=== PATIENT | female | born 1950 | race Caucasian/White ===

== ENCOUNTER 2018-11-18 10:35 | Inpatient (IN) | payer OTHER, MEDICARE ==
[~2018-11-18] VITALS: Ht 162.6 cm; Wt 105.2 kg
[~2018-11-18 10:35] MED LIST: CARV25TA78 PO; LEVO50TA86 PO; LOSA100T75 PO; OMEP-126 PO; POTA20TA94 PO; PRE1 PO; QUET300T18 PO; QUET400T11 PO; SIMV-54 PO; ZOLP-1 PO; ZOLP-350 PO
[2018-11-18 11:42] VITALS: BP 116/71
--- NOTE | 2018-11-18 12:16 | Gen Surgery History & Physical ---
History of Present Illness Chief Complaint New colostomy, weakness History of Present Illness Pt underwent Husam's procedure 6 days ago for sigmoid colon perforation related to severe constipation. Healing well but still weak and still learning how to care for her stoma. Being admitted to [facility] for continue stoma education and PT/OT. History Problems: (1) Hyperlipidemia Status: Chronic (2) Hypertension Status: Chronic (3) Constipation due to opioid therapy Status: Chronic (4) History of hysterectomy for benign disease Status: Chronic (5) Hx laparoscopic cholecystectomy Status: Chronic Home Meds Reported Medications Zolpidem Tartrate (AMBIEN) 10 Mg Tablet, 1 TAB PO QHS, TAB 11/12/18 Zolpidem Tartrate (AMBIEN) 5 Mg Tablet, 1 TAB PO QHS, TAB 11/12/18 Quetiapine Fumarate (SEROQUEL) 400 Mg Tablet, 400 MG PO HS 11/12/18 Quetiapine Fumarate (SEROQUEL) 300 Mg Tablet, 300 MG PO HS 11/12/18 Omeprazole (OMEPRAZOLE) 20 Mg Capsule.dr, 1 CAP PO QDAY, CAP 11/12/18 Prednisone (PREDNISONE) 1 Mg Tab, 4 MG PO QDAY, TAB 11/12/18 Levothyroxine Sodium (LEVOTHYROXINE SODIUM) 50 Mcg Tablet, 50 MCG PO QDAY, TAB 11/12/18 Potassium Chloride (POTASSIUM CHLORIDE) 20 Meq Tab.er.prt, 60 MEQ PO QDAY 11/12/18 Simvastatin (SIMVASTATIN) 40 Mg Tablet, 40 MG PO HS, TAB 11/12/18 Losartan Potassium (LOSARTAN POTASSIUM) 100 Mg Tablet, 100 MG PO QDAY 11/12/18 Carvedilol (CARVEDILOL) 25 Mg Tablet, 25 MG PO BID, #10 TAB 11/12/18 Allergies: Coded Allergies: No Known Drug Allergies (Unverified , 11/12/18) Review of Systems All Systems Reviewed/Normal: Yes, Except as Noted Exam General Appearance: Alert, Awake, No Acute Distress, Afebrile Neuro: No Gross deficits Eyes: PERRLA GI: Abd Soft and Non-Tender (Midline incision is healing well without erythema or drainage. Stoma is pink and functional.) Extremities: Warm, Perfused Psych: Alert & Oriented X3, Appropriate Mood & Affect Assessment and Plan Problems: (1) Weakness Status: Acute Assessment & Plan: 11/18/18: Continue PT/OT, increase mobility. (2) Colostomy in place Status: Acute Assessment & Plan: Continue stoma education Condition Stable. Time Spent: < 30 min Venous Thromboembolism VTE Risk Physician Assess for VTE Risk: Yes Patient's VTE Risk: Low VTE Diagnostic Test 2 Days Prior to Admit: No Antithrombotics Is Pt On Any Antithrombotics?: No ETHEL PARKER MD Nov 18, 2018 12:16
[2018-11-18] MEDS: ACETAMINOPHEN 325 MG TAB PO PRN ×2 (13:35→20:31)
--- NOTE | 2018-11-18 14:33 | NUR ---
Physical Therapy Impression Pt able to transfer sit>supine in a flat bed using the rail with Mod A for B LEs via log roll technique. Pt is SBA for transfers and gait x 175' with RW. Physical Therapy Goals 1. Mod I bed mobility via log roll technique with a flat bed. 2. Mod I sit<>stand transfers. 3. Mod I gait x 150' with RW. 4. Improve TUG to <30 seconds as indicator of improved function. 5. Pick object up off the floor Mod I. Patient's Goals
--- NOTE | 2018-11-18 14:39 | NUR ---
Pt. provided with activities calendar for the month. Was asked if there were any particular activities that she wanted to do while here. She stated she wants to, "watch TV, read her books (she has 3), and sleep." Pt. refused hair/nail care for ACTIVITIES today.
--- NOTE | 2018-11-18 14:42 | PT ECF NOTE ---
Type of Note: Initial Note Primary Medical Diagnosis: sigmoid colon perforation, new colostomy Physical Therapy Evaluation Date: 11/18/18 SUBJECTIVE: Prior Hospitalization: [facility] Med/Surg, please see EMR for details Prior Level of Function: Mod I with use of RW, Pt reports minimal ambulation Prior Living Status: Single level house, Spouse Community Services: No known needs Home Accessibility: no stairs Equipment Owned: Front wheeled walker Medical Complications/Past Medical History: See EMR Psychosocial Support: Supportive and family Pain Scale (0-10): Pt reports minimal pain at eval. OBJECTIVE: Strength: Right Lower Extremity: functional strength noted Left Lower Extremity: functional strength noted Bed Mobility: Mod A for B LE during sit>supine via log roll Assistive device: Bed rail Transfers: SBA Assistive Device: Front wheeled walker Gait: SBA x 175' Assistive device: Front wheeled walker Timed Up and Go (>12 seconds indicated increased risk for falls): 32.8 seconds ASSESSMENT: Pt presents with decreased independence compared to Mod I baseline. TUG score indicated increased fall risk. Pt will benefit from skilled PT for functional mobility training in order to increase independence and safety. Problem List/Current Limitations: Pain, Decreased activity tolerance, Decreased strength, Generalized weakness Short Term Goals: 1. Mod I bed mobility via log roll technique with a flat bed. 2. Mod I sit<>stand transfers. 3. Mod I gait x 150' with RW. 4. Improve TUG to <30 seconds as indicator of improved function. 5. Pick object up off the floor Mod I. [facility] Goals: Return home Patient Goals: Return home Rehabilitation Prognosis: Fair Barriers for Discharge: decreased tolerance to activity at baseline. PLAN: The patient will benefit from skilled physical therapy services 5 times per week for 2 weeks including: Therapeutic Exercise, Therapeutic Activities, Transfer Training, Gait Training, Stair Training, Manual Therapy, ADL's, Safety Training, Neuromuscular Re-educ., Pt/Caregiver Training, Bed Mobility Thank you for this referral. If you have any questions, concerns, or comments about this report or plan, please contact me at . Duyen Miguel, PT, DPT, GCS MTDD
--- NOTE | 2018-11-18 14:58 | Medical Nutrition Therapy ---
Nutrition Anthropometrics Height (Inches): 64.00 Height (Calculated Centimeters: 162.861394 Weight (Pounds): 232 Weight (Calculated Kilograms): 105.233 BMI: 39.8 Venkata Nutrition Score: Very Poor Venkata Nutrition Risk Score: 18 Dietary Referral Nutrition Risk Factors: Unplanned Loss >10lbs, Recent Nutrition Impact Nutrition Risk Comment: New Colostomy Physical Findings Physical Appearance: Obese BMI 30-39 Skin Appearance Skin Appearance: Edema Edema Location Modifier: Both Edema Location: Leg Type of Edema: Degree of Edema: 1+ Gastrointestinal Symptoms GI Symtoms: Tube Present: Bowel Sounds: Recent Bowel Pattern: Colostomy Stool Characteristics: Brown, Soft Nutrition/Food History Usually good at home Poor Nutritional Diagnosis Nutritional Risk Acuity 2: New Colostomy Nutritional Risk Acuity 3: Colostomy Past Medical History: Hypercholesterolemia, HTN, Depression Nutritional Acuity: 2-Moderate Nutrition Diagnosis: Altered GI Function Nutrition Etiology: Physiological Causes Nutrition Problem/Etiology/Sym: New colostomy Energy Requirement: 2027 (MSJ (AF1.3)) Protein Requirement: 105 (1g/kg) Fluid Requirement: 2027 (1mL/kcal) Nutrition Intervention: Between meal supplement, Teaching Diet Comment To [facility]: OFFER ORAL NUTRITION SUPPLEMENT (MIGHTY SHAKE, BOOST, MILKSHAKE WITH BENEPROTEIN) Nutrition Monitoring & Eval Nutrition Goals: Eat 75-100% Meal Nutrition Follow-Up: Poor Intake Nutrition Monitoring: Monitor intake, Quiz pt on colostomy diet RD Patient Assessment Time: [address] Assessment Type: RD Assessment Patient Nutrition Acuity: 2-Moderate Follow Up Date: Nov 24, 2018 Nutritional Comment: 11/18/18-Spoke with pt this afternoon. Appetite continues to be poor. Pt recently advanced from clears to DANA, average intake on med/surg was 42% of meals. Encouraged pt to eat, recommended appropriate foods. Asked [facility] to offer nutritional supplement at meals. Will continue to monitor appetite, food tolerance, output, and need for additional education.ALEX FARFAN Nov 18, 2018 14:29
--- NOTE | 2018-11-18 15:36 | OT ECF NOTE ---
Type of Note: Initial Note Primary Medical Diagnosis: Generalized weakness s/p sigmoid colon perforation, new colostomy Occupational Therapy Evaluation Date: 11/18/18 SUBJECTIVE: Prior Hospitalization: COUNTS INCLUDE 234 BEDS AT [facility] 11/12/18-11/18/18 Prior Level of Function: Independent with ADLs. Assist from family for IADLs. Ambulating with RW. 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) Prior Living Status: Apartment Spouse Living with family Assist by family Community Services: No known needs Home Accessibility: All needs on one level Tub/shower combination Equipment Owned: Front wheeled walker Rollator Tub/shower chair Medical Complications/Past Medical History: Please refer to EMR Psychosocial Support: Supportive spouse and family in [place] Pain Scale (0-10): None reported at time of evaluation OBJECTIVE: Strength: MMT: Right Left Shoulder Flexion WFL WFL Elbow Flexion WFL WFL Wrist Extension WFL WFL Machine Clipper WFL WFL (5= normal, 4= good, 3= fair, 2= poor, 1= trace) ROM: Both upper extremities,Moderately limited Sensation: No paraesthesia reported Functional Transfer: Assistive Device: Front wheeled walker, Gait belt Transfer Ability: SBA ADL: Upper body dressing: Assistive device: Upper body dressing ability: N/T Lower body dressing: Assistive device: None Lower body dressing ability: Minimum assistance Toileting: Assistive device: Pt with new colostomy. Primary concern for discharge is improving education and independence for colostomy management. Toileting ability: N/T Grooming/hygiene: Assistive device: Grooming ability: N/T Bathing: Assistive device: Bathing ability: N/T Standardized Assessment: Laura Index of Activities of Daily Livin/20 upon initial evaluation (11/18/18). ASSESSMENT: Armida presents to [facility] with generalized weakness and decreased independence for ADLs/IADLs s/p recent hospital admission. She will benefit from skilled OT services to improve activity tolerance and optimize independence for ADLs prior to discharge home. Problem List/Current Limitations: Pain Decreased activity tolerance Decreased strength Generalized weakness Short Term Goals: 1) Pt will be Independent UB/LB dressing. 2) Pt will be Independent toilet task. 3) Pt will be Modified Independent shower task. 4) Pt will be Independent grooming standing sinkfront x5 minutes. 5) Pt will be Independent with UB HEP. 6) Pt Laura Index of ADLs score will improve by two points. Shelter Goals: Return home with services Patient Goals: Increase independence and education for colostomy management Rehabilitation Prognosis: Good Barriers to Discharge: Decreased activity tolerance at baseline PLAN: The patient will benefit from skilled occupational therapy services 5 times per week for 2 weeks including: Ther ex ADL training Safety training Ther act IADL training Transfer training Adaptive equip training Bed mobility Energy conservation Thank you for this referral. If you have any questions, concerns, or comments about this report or plan, please contact me at . Dominique Yuan MS, OTR/L Occupational Therapist [place]
[2018-11-18 16:15] VITALS: BP 132/80
[2018-11-18 19:15] VITALS: BP 147/76
[2018-11-18] MEDS: ENOXAPARIN 40 MG/0.4ML SYR SC SCH (20:30)
[2018-11-18] MEDS: QUEtiapine FUM 100 MG TAB PO SCH (20:31)
[2018-11-18] MEDS: CARVEDILOL 25 MG TABLET PO SCH (20:31)
[2018-11-18] MEDS: DOCUSATE SODIUM 100 MG CAP PO SCH (20:31)
[2018-11-18] MEDS: HYDROmorphone HCL 2 MG TAB PO PRN (21:24)
[2018-11-19] MEDS: HYDROmorphone HCL 2 MG TAB PO PRN ×2 (03:02→19:21)
[2018-11-19] MEDS: LEVOTHYROXINE SOD 0.05 MG TAB PO SCH (05:42)
[2018-11-19 07:11] VITALS: BP 136/70
[2018-11-19] MEDS: CARVEDILOL 25 MG TABLET PO SCH ×2 (08:55→20:47)
[2018-11-19] MEDS: POLYETHYLENE GLYCOL 17 GM PKT PO SCH (08:55)
[2018-11-19] MEDS: LOSARTAN POTASSIUM 50 MG TAB PO SCH (08:56)
[2018-11-19] MEDS: DOCUSATE SODIUM 100 MG CAP PO SCH ×2 (08:56→20:47)
[2018-11-19] MEDS: CETIRIZINE HCL 10 MG TAB PO SCH (08:56)
[2018-11-19] MEDS: PANTOPRAZOLE SOD 40 MG TABEC PO SCH (08:56)
--- NOTE | 2018-11-19 10:20 | NUR ---
Occupational Therapy Impression Pt alert, agreeable to OT tx. Reports feeling more fatigued this date. Dressed upon OT arrival. SBA ambulation [id number] with RW. Min A to manage O2 tubing. Mod (I) bathtub transfer with shower chair. Pt reporting fatigue, seated up in chair declining further needs at this time. Occupational Therapy Goals 1) Pt will be Independent UB/LB dressing. 2) Pt will be Independent toilet task. 3) Pt will be Modified Independent shower task. 4) Pt will be Independent grooming standing sinkfront x5 minutes. 5) Pt will be Independent with UB HEP. 6) Pt Laura Index of ADLs score will improve by two points. Patient's Goal
--- NOTE | 2018-11-19 15:37 | NUR ---
Physical Therapy Impression Pt requires encouragement to participate today. Pt reports feeling tired. Pt demonstrates SBA for transfers and ambulation with RW to shower room. Physical Therapy Goals 1. Mod I bed mobility via log roll technique with a flat bed. 2. Mod I sit<>stand transfers. 3. Mod I gait x 150' with RW. 4. Improve TUG to <30 seconds as indicator of improved function. 5. Pick object up off the floor Mod I. Patient's Goals
[2018-11-19 16:20] VITALS: BP 132/76
[2018-11-19] MEDS: ACETAMINOPHEN 325 MG TAB PO PRN (20:47)
[2018-11-19] MEDS: ENOXAPARIN 40 MG/0.4ML SYR SC SCH (20:47)
[2018-11-19] MEDS: QUEtiapine FUM 100 MG TAB PO SCH (20:47)
[2018-11-20] MEDS: HYDROmorphone HCL 2 MG TAB PO PRN ×2 (02:05→20:33)
[2018-11-20] MEDS: LEVOTHYROXINE SOD 0.05 MG TAB PO SCH (05:11)
[2018-11-20 07:00] VITALS: BP 100/64
[2018-11-20 08:09] VITALS: BP 126/68
[2018-11-20] MEDS: CARVEDILOL 25 MG TABLET PO SCH ×2 (09:00→20:33)
[2018-11-20 09:35] VITALS: BP 110/43
[2018-11-20] MEDS: LOSARTAN POTASSIUM 50 MG TAB PO SCH (09:37)
[2018-11-20] MEDS: PANTOPRAZOLE SOD 40 MG TABEC PO SCH (09:37)
[2018-11-20] MEDS: CETIRIZINE HCL 10 MG TAB PO SCH (09:37)
[2018-11-20] MEDS: POLYETHYLENE GLYCOL 17 GM PKT PO SCH (09:38)
[2018-11-20] MEDS: DOCUSATE SODIUM 100 MG CAP PO SCH ×2 (09:38→20:33)
--- NOTE | 2018-11-20 10:11 | NUR ---
Occupational Therapy Impression Reviewed UB ther ex HEP. SBA ambulation x90ft with RW. Occasional Min A to manage O2 tubing. Independent sit to supine with log roll. Independent toileting. Independent oral care standing sinkfront. Discussed AE needs and home evaluation. Pt declined home evaluation at this time but will follow-up Friday to determine if she would like one. Otherwise, recommending HH services. Nearing OT goals, discussed d/c from OT early next week. Pt verbalized understanding. Occupational Therapy Goals 1) Pt will be Independent UB/LB dressing. 2) Pt will be Independent toilet task. 3) Pt will be Modified Independent shower task. 4) Pt will be Independent grooming standing sinkfront x5 minutes. 5) Pt will be Independent with UB HEP. 6) Pt Laura Index of ADLs score will improve by two points. Patient's Goal
--- NOTE | 2018-11-20 11:01 | NUR ---
Physical Therapy Impression Patient presents in bed and reports that she is fatigued today as she sat up in her chair all day yesterday. She is agreeable to therapy but does not want to ambulate as she already did this with OT. Standing B LE exercises including mini squats x 5 standing marching x 5 hip flex and abd x 10 on right LE and 5 on left B LAQ x 10 Patient was SBA for bed mobility and SBA with transfer from bed to chair. went to [facility] today and bought a rail to put on the bed to help with bed mobility when patient returns home. STS x 5 B HR in standing x 10 Physical Therapy Goals 1. Mod I bed mobility via log roll technique with a flat bed. 2. Mod I sit<>stand transfers. 3. Mod I gait x 150' with RW. 4. Improve TUG to <30 seconds as indicator of improved function. 5. Pick object up off the floor Mod I. Patient's Goals
--- NOTE | 2018-11-20 13:37 | NUR ---
Non-billable visit to assist with new appliance application and problem solve with nursing regarding skin care and ways in which to allow for a better seal with wafer. Pt tolerated use of 6x6 wafer with 100mm flange and cut to fit opening to better accommodate stoma size with current edema. This option does not have an accordion flange, however, thus clasping the pouch to the wafer is a bit more difficult. Will attempt to progress back to the 70mm flange with accordion attachment for pouch when edema is reduced.
[2018-11-20] MEDS: FLUCONAZOLE 100 MG TAB PO SCH (16:48)
[2018-11-20 16:55] VITALS: BP 147/85
[2018-11-20 20:29] VITALS: BP 138/71
[2018-11-20] MEDS: ENOXAPARIN 40 MG/0.4ML SYR SC SCH (20:32)
[2018-11-20] MEDS: QUEtiapine FUM 100 MG TAB PO SCH (20:33)
[2018-11-20] MEDS ORDERED: NYSTATIN 5 ML UDCUP PO SCH (21:00)
[2018-11-21] MEDS: HYDROmorphone HCL 2 MG TAB PO PRN ×2 (03:51→22:54)
[2018-11-21] MEDS: LEVOTHYROXINE SOD 0.05 MG TAB PO SCH (06:11)
[2018-11-21 07:45] VITALS: BP 100/62
[2018-11-21] MEDS: ACETAMINOPHEN 325 MG TAB PO PRN (08:52)
[2018-11-21] MEDS: POLYETHYLENE GLYCOL 17 GM PKT PO SCH (08:53)
[2018-11-21] MEDS: CETIRIZINE HCL 10 MG TAB PO SCH (08:53)
[2018-11-21] MEDS: FLUCONAZOLE 100 MG TAB PO SCH (08:54)
[2018-11-21] MEDS: PANTOPRAZOLE SOD 40 MG TABEC PO SCH (08:55)
[2018-11-21] MEDS: DOCUSATE SODIUM 100 MG CAP PO SCH ×2 (08:55→21:45)
[2018-11-21] MEDS: LOSARTAN POTASSIUM 50 MG TAB PO SCH (08:55)
[2018-11-21] MEDS: CARVEDILOL 25 MG TABLET PO SCH ×3 (08:55→21:44)
[2018-11-21 17:05] VITALS: BP 128/57
[2018-11-21] MEDS: QUEtiapine FUM 100 MG TAB PO SCH (21:45)
[2018-11-21] MEDS: ENOXAPARIN 40 MG/0.4ML SYR SC SCH (21:46)
[2018-11-22] MEDS: LEVOTHYROXINE SOD 0.05 MG TAB PO SCH (06:27)
[2018-11-22 07:42] VITALS: BP 141/54
[2018-11-22] MEDS: POLYETHYLENE GLYCOL 17 GM PKT PO SCH (08:44)
[2018-11-22] MEDS: LOSARTAN POTASSIUM 50 MG TAB PO SCH (08:44)
[2018-11-22] MEDS: FLUCONAZOLE 100 MG TAB PO SCH (08:44)
[2018-11-22] MEDS: PANTOPRAZOLE SOD 40 MG TABEC PO SCH (08:44)
[2018-11-22] MEDS: CETIRIZINE HCL 10 MG TAB PO SCH (08:45)
[2018-11-22] MEDS: DOCUSATE SODIUM 100 MG CAP PO SCH ×2 (08:45→21:33)
[2018-11-22] MEDS: CARVEDILOL 25 MG TABLET PO SCH ×2 (08:45→21:33)
[2018-11-22] MEDS: ACETAMINOPHEN 325 MG TAB PO PRN ×2 (08:46→21:33)
[2018-11-22 16:25] VITALS: BP 127/51
[2018-11-22 21:30] VITALS: BP 145/62
[2018-11-22] MEDS: QUEtiapine FUM 100 MG TAB PO SCH (21:33)
[2018-11-22] MEDS: ENOXAPARIN 40 MG/0.4ML SYR SC SCH (21:33)
[2018-11-23] MEDS: HYDROmorphone HCL 2 MG TAB PO PRN ×2 (00:09→21:05)
[2018-11-23] MEDS: LEVOTHYROXINE SOD 0.05 MG TAB PO SCH (06:32)
[2018-11-23 07:20] VITALS: BP 141/61
[2018-11-23] MEDS: ACETAMINOPHEN 325 MG TAB PO PRN ×2 (08:48→21:04)
[2018-11-23] MEDS: POLYETHYLENE GLYCOL 17 GM PKT PO SCH (08:48)
[2018-11-23] MEDS: PANTOPRAZOLE SOD 40 MG TABEC PO SCH (08:48)
[2018-11-23] MEDS: DOCUSATE SODIUM 100 MG CAP PO SCH ×2 (08:49→21:05)
[2018-11-23] MEDS: CETIRIZINE HCL 10 MG TAB PO SCH (08:49)
[2018-11-23] MEDS: CARVEDILOL 25 MG TABLET PO SCH ×2 (08:49→21:05)
[2018-11-23] MEDS: LOSARTAN POTASSIUM 50 MG TAB PO SCH (08:49)
--- NOTE | 2018-11-23 11:37 | NUR ---
Physical Therapy Impression Pt requires encouragement to participate today, reports that she is "having a bad day". Fantasma for transfers and short distance ambulation with RW -- pt demonstrates good safety and is safe to be I) in her room with RW at this time. PT instruction for standing balance tasks in RW while standing at edge of chair in order to improve balance for functional tasks. PT instruction for narrow KELLEN with EO and EC, as well as tandem stance. Pt with increased difficulty with eyes closed, and reports R) knee pain with tandem stance. Pt educated on the importance of balance training to decrease risk of falls. Pt will benefit from [facility] at D/C. Physical Therapy Goals 1. Mod I bed mobility via log roll technique with a flat bed. 2. Mod I sit<>stand transfers. 3. Mod I gait x 150' with RW. 4. Improve TUG to <30 seconds as indicator of improved function. 5. Pick object up off the floor Mod I. Patient's Goals
--- NOTE | 2018-11-23 13:00 | NUR ---
5-day MDS completed with pt. C: 15, D: 06, E: no concerns, Q: plan to DC to community, referral already made for [facility] at [place]. Will continue to follow for DC needs.
--- NOTE | 2018-11-23 14:02 | NUR ---
Occupational Therapy Impression Pt alert, supine in bed. Adamantly refusing to get OOB and engage in OT tx. Reporting she will be agreeable to work with OT in the AM and get dressed. Reports no concerns for OT with discharge home, primary concern in ostomy supplies and management. Discussed AE needs (walk tray/bed rail). Pt declined further needs at this time. Occupational Therapy Goals 1) Pt will be Independent UB/LB dressing. 2) Pt will be Independent toilet task. 3) Pt will be Modified Independent shower task. 4) Pt will be Independent grooming standing sinkfront x5 minutes. 5) Pt will be Independent with UB HEP. 6) Pt Laura Index of ADLs score will improve by two points. Patient's Goal
--- NOTE | 2018-11-23 15:19 | Medical Nutrition Therapy ---
Nutrition Anthropometrics Height (Inches): 64.00 Height (Calculated Centimeters: 162.293816 Weight (Pounds): 232 Weight (Calculated Kilograms): 105.233 BMI: 39.8 Venkata Nutrition Score: Probably Inadequate Venkata Nutrition Risk Score: 18 Dietary Referral Nutrition Risk Factors: Unplanned Loss >10lbs, Recent Nutrition Impact Nutrition Risk Comment: New Colostomy Physical Findings Physical Appearance: Obese BMI 30-39 Skin Appearance Skin Appearance: Edema Edema Location Modifier: Both Edema Location: Leg Type of Edema: Degree of Edema: 1+ Gastrointestinal Symptoms GI Symtoms: Change in Bowel Pattern Tube Present: Bowel Sounds: Recent Bowel Pattern: Colostomy Stool Characteristics: Brown, Soft Nutritional Diagnosis Nutritional Risk Acuity 2: New Colostomy Nutritional Risk Acuity 3: Colostomy Past Medical History: Hypercholesterolemia, HTN, Depression Nutritional Acuity: 2-Moderate Nutrition Diagnosis: Altered GI Function Nutrition Etiology: Physiological Causes Nutrition Problem/Etiology/Sym: New colostomy Energy Requirement: 2027 (MSJ (AF1.3)) Protein Requirement: 105 (1g/kg) Fluid Requirement: 2027 (1mL/kcal) Nutrition Intervention: Between meal supplement, Teaching Diet Comment To [facility]: OFFER ORAL NUTRITION SUPPLEMENT (MIGHTY SHAKE, BOOST, MILKSHAKE WITH BENEPROTEIN) Nutritional Education Nutrition Education Topic: Other Learning Barriers: Emotional Learning Readiness: Interested Teaching Methods: Discussion Response to Teaching: Verbalize understanding Nutrition Counseling: Reinforced diet education for colostomy. Nutrition Monitoring & Eval Nutrition Goals: Eat 75-100% Meal Nutrition Follow-Up: Good Intake, Fair Intake RD Patient Assessment Time: [address] Assessment Type: RD Assessment Patient Nutrition Acuity: 2-Moderate Follow Up Date: Nov 24, 2018 Nutritional Comment: 11/18/18-Spoke with pt this afternoon. Appetite continues to be poor. Pt recently advanced from clears to DANA, average intake on med/surg was 42% of meals. Encouraged pt to eat, recommended appropriate foods. Asked [facility] to offer nutritional supplement at meals. Will continue to monitor appetite, food tolerance, output, and need for additional education.MANNIE 11/23/18-Spoke with pt this afternoon. Reviewed diet education for colostomy. Pt is eating 60% average x last 8 meals. No new weight since last assess. Meal intake improving slightly, pt is still reporting decreased appetite. Reported stoma output appears to be normal, one large stool the rest small. Encouraged pt to drink ~2000mL of water everyday to prevent constipation. Requested Activia yogurt for pt. Will continue to monitor intake, appetite, need for additional diet education.ALEX FARFAN Nov 23, 2018 15:19
[2018-11-23 16:26] VITALS: BP 115/71
[2018-11-23] MEDS: ENOXAPARIN 40 MG/0.4ML SYR SC SCH (21:04)
[2018-11-23] MEDS: QUEtiapine FUM 100 MG TAB PO SCH (21:05)
[2018-11-24] MEDS: LEVOTHYROXINE SOD 0.05 MG TAB PO SCH (06:24)
[2018-11-24 07:05] VITALS: BP 143/63
--- NOTE | 2018-11-24 09:02 | NUR ---
Physical Therapy Impression Pt has met PT goals and is safe to d.c home from a mobility stand point when medically appropriate. Pt continues to reports R knee pain, but this is present at baseline, and pt utilizes a RW at [facility]. Pt is [facility] for all mobility with a Rw and has improved her TUG test to 20.7 sec, indicating an improvement in function. Rec [facility] at d/c. Physical Therapy Goals 1. Mod I bed mobility via log roll technique with a flat bed. 2. Mod I sit<>stand transfers. 3. Mod I gait x 150' with RW. 4. Improve TUG to <30 seconds as indicator of improved function. 5. Pick object up off the floor Mod I. Patient's Goals
--- NOTE | 2018-11-24 09:09 | NUR ---
Occupational Therapy Impression Pt alert and agreeable to OT tx. Reporting no further needs to address with OT, concerned with obtaining supplies for ostomy. Mod (I) ambulation in room with RW. Independent UB/LB dressing donning and doffing. SpO2 >90% on room air throughout tx. Pt has met all skilled OT goals. Desires to discharge home tomorrow with HH services if ostomy supplies are arranged. Occupational Therapy Goals 1) Pt will be Independent UB/LB dressing. 2) Pt will be Independent toilet task. 3) Pt will be Modified Independent shower task. 4) Pt will be Independent grooming standing sinkfront x5 minutes. 5) Pt will be Independent with UB HEP. 6) Pt Laura Index of ADLs score will improve by two points. Patient's Goal
--- NOTE | 2018-11-24 09:09 | NUR ---
OCCUPATIONAL THERAPY Dressing Assistance: Independent Dressing Aid Required: None Bathing Assistance: Modified Independent Bathing Equipment: Shower Chair Home Assessment: Not Completed Feeding Assistance: Independent Feeding Specialized Equipment: None Toilet Use: Independent Verbalizes Needs: Yes Understands Precautions: Yes Cooperative: Yes Family Teaching: No Occupational Therapy Comment:
[2018-11-24] MEDS: POLYETHYLENE GLYCOL 17 GM PKT PO SCH (09:31)
[2018-11-24] MEDS: PANTOPRAZOLE SOD 40 MG TABEC PO SCH (09:31)
[2018-11-24] MEDS: CARVEDILOL 25 MG TABLET PO SCH ×2 (09:31→20:27)
[2018-11-24] MEDS: LOSARTAN POTASSIUM 50 MG TAB PO SCH (09:31)
[2018-11-24] MEDS: DOCUSATE SODIUM 100 MG CAP PO SCH ×2 (09:31→20:27)
[2018-11-24] MEDS: CETIRIZINE HCL 10 MG TAB PO SCH (09:31)
--- NOTE | 2018-11-24 13:30 | NUR ---
Non-billable visit for pt/CG discharge teaching. Return to 70mm flange was successful as edema is now reduced and stoma size measures 45mm. Reviewed resources available with pt starter kit and community resources available for supplies. Pt's spouse completed application of new stoma wafer with good seal obtained and pouch applied with good contact. Pt did participate in body habitus management to allow for a more exposed surface along inferior edge of stoma to gain appropriate seal. Pt will have [facility] services to assist with further ostomy teaching as well as PT/OT to continue with strengthening and functional mobility to allow for return to indep with ADL's including new activities required with stoma management once home. Pt anticipates d/c home tomorrow. Communication completed with Dr. King's nurse for f/u appointment schedule and to indicate which products have been most successful overall for a future home supply order.
--- NOTE | 2018-11-24 14:21 | OT ECF NOTE ---
Type of Note: Discharge Note Primary Medical Diagnosis: Generalized weakness s/p sigmoid colon perforation, new colostomy Occupational Therapy Evaluation Date: 11/18/18 SUBJECTIVE: Prior Hospitalization: [facility] 11/12/18-11/18/18 Prior Level of Function: Independent with ADLs. Assist from family for IADLs. Ambulating with RW. 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 Pt with no further questions, verbalized understanding. 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 Grooming/hygiene: Assistive device: None Grooming ability: Independent Bathing: Assistive device: Modified Independent Bathing ability: Shower chair Standardized Assessment: Laura Index of Activities of Daily Livin20 upon initial evaluation (11/18/18). 18/20 upon discharge (11/24/18). ASSESSMENT: Armida presented to [facility] with generalized weakness and decreased independence for ADLs/IADLs s/p recent hospital admission. She has met all skilled OT goals and reports no further questions/concerns to address with OT at this time. Short Term Goals: 1) Pt will be Independent UB/LB dressing. GOAL MET 2) Pt will be Independent toilet task. GOAL MET 3) Pt will be Modified Independent shower task. GOAL MET 4) Pt will be Independent grooming standing sinkfront x5 minutes. 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 Thank you for this referral. If you have any questions, concerns, or comments about this report or plan, please contact me at . Dominique Yuan MS, OTR/L Occupational Therapist [place]
--- NOTE | 2018-11-24 14:24 | NUR ---
[facility] notified of discharge plan for Friday. ZEFERINO Stallings will get message to Dr. Fernandes who is covering for Dr. King. Order for liseth to be discontinued tomorrow.
--- NOTE | 2018-11-24 15:02 | NUR ---
PHYSICAL THERAPY INFORMATION TRANSFER SHEET BED MOBILITY: Hugh TRANSFERS: Modified I/ AE GAIT: 60 ' with O2 RW and Modified I/ AE Weightbearing Status: STAIRS: with . EXERCISES: Verbalizes Needs: Yes Understands Directions Yes Cooperative: Yes Family Teaching: Yes Physical Therapy Comment:
--- NOTE | 2018-11-24 15:07 | PT ECF NOTE ---
ype of Note: Discharge Summary Primary Medical Diagnosis: sigmoid colon perforation, new colostomy Physical Therapy Discharge Date: 11/24/18 SUBJECTIVE: Prior Hospitalization: [facility] Med/Surg, please see EMR for details Prior Level of Function: Mod I with use of RW, Pt reports minimal ambulation Prior Living Status: Single level house, Spouse Community Services: No known needs Home Accessibility: no stairs Equipment Owned: Front wheeled walker Medical Complications/Past Medical History: See EMR Psychosocial Support: Supportive and family Pain Scale (0-10): 3-4/10 OBJECTIVE: Strength: Right Lower Extremity: functional strength noted R) knee extension and flexion 3+/5, limited by pain Left Lower Extremity: functional strength noted Bed Mobility: Fantasma Transfers: Fantasma with RW Gait: Fantasma x200' with RW Timed Up and Go (>12 seconds indicated increased risk for falls): 20.74 ASSESSMENT: Pt has met PT goals and is safe to d.c home from a mobility stand point when medically appropriate. Pt continues to reports R knee pain, but this is present at baseline, and pt utilizes a RW at [facility]. Pt is Fantasma for all mobility with a Rw and has improved her TUG test to 20.7 sec, indicating an improvement in function. Rec HHC at d/c. Problem List/Current Limitations: Pain, Decreased activity tolerance, Decreased strength, Generalized weakness Short Term Goals: (goals met) 1. Mod I bed mobility via log roll technique with a flat bed. 2. Mod I sit<>stand transfers. 3. Mod I gait x 150' with RW. 4. Improve TUG to <30 seconds as indicator of improved function. 5. Pick object up off the floor Mod I. [facility] Goals: Return home -met Patient Goals: Return home - met PLAN: The patient will discharge home with assistance from her spouse and [facility] services. Thank you for this referral. If you have any questions, concerns, or comments about this report or plan, please contact me at . Rosa Null, PT, DPT MTDD
[2018-11-24 15:40] VITALS: BP 140/78
[2018-11-24] MEDS: ENOXAPARIN 40 MG/0.4ML SYR SC SCH (20:27)
[2018-11-24] MEDS: QUEtiapine FUM 100 MG TAB PO SCH (20:28)
[2018-11-24] MEDS: HYDROmorphone HCL 2 MG TAB PO PRN (20:59)
[2018-11-25] MEDS: ACETAMINOPHEN 325 MG TAB PO PRN ×2 (04:19→11:21)
[2018-11-25] MEDS: LEVOTHYROXINE SOD 0.05 MG TAB PO SCH (06:33)
[2018-11-25 07:03] VITALS: BP 142/55
[2018-11-25] MEDS: CARVEDILOL 25 MG TABLET PO SCH (09:00)
[2018-11-25] MEDS: POLYETHYLENE GLYCOL 17 GM PKT PO SCH (09:31)
[2018-11-25] MEDS: PANTOPRAZOLE SOD 40 MG TABEC PO SCH (09:32)
[2018-11-25] MEDS: CETIRIZINE HCL 10 MG TAB PO SCH (09:32)
[2018-11-25] MEDS: LOSARTAN POTASSIUM 50 MG TAB PO SCH (09:32)
[2018-11-25] MEDS: DOCUSATE SODIUM 100 MG CAP PO SCH (09:32)
--- NOTE | 2018-11-25 09:55 | Hospitalist Depart ---
Discharge Summary Reason for Hosp/Final Diag: (1) Weakness Status: Acute Hospital Course & Plan: 11/18/18: Continue PT/OT, increase mobility. 11/25/18: doing well. darci po. ready to go home. stoma pink. inc c/d/i. d/c home with . f/u dr. martinez 1 wk. leave liseth in 1 more week. 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 Follow Up For: ADL Assistance Discharge Instructions Home Meds Reported Medications Zolpidem Tartrate (AMBIEN) 10 Mg Tablet, 1 TAB PO QHS, TAB 11/12/18 Zolpidem Tartrate (AMBIEN) 5 Mg Tablet, 1 TAB PO QHS, TAB 11/12/18 Quetiapine Fumarate (SEROQUEL) 400 Mg Tablet, 400 MG PO HS 11/12/18 Quetiapine Fumarate (SEROQUEL) 300 Mg Tablet, 300 MG PO HS 11/12/18 Omeprazole (OMEPRAZOLE) 20 Mg Capsule.dr, 1 CAP PO QDAY, CAP 11/12/18 Prednisone (PREDNISONE) 1 Mg Tab, 4 MG PO QDAY, TAB 11/12/18 Levothyroxine Sodium (LEVOTHYROXINE SODIUM) 50 Mcg Tablet, 50 MCG PO QDAY, TAB 11/12/18 Potassium Chloride (POTASSIUM CHLORIDE) 20 Meq Tab.er.prt, 60 MEQ PO QDAY 11/12/18 Simvastatin (SIMVASTATIN) 40 Mg Tablet, 40 MG PO HS, TAB 11/12/18 Losartan Potassium (LOSARTAN POTASSIUM) 100 Mg Tablet, 100 MG PO QDAY 11/12/18 Carvedilol (CARVEDILOL) 25 Mg Tablet, 25 MG PO BID, #10 TAB 11/12/18 Diet: Regular Activity: No Heavy Lifting Special Instructions: ok to shower. f/u dr. martinez 1 wk. Venous Thromboembolism Antithrombotics Is Pt On Any Antithrombotics?: No SARA VELOZ Nov 25, 2018 09:55
--- NOTE | 2018-11-25 11:00 | NUR ---
Liseth Fernandes here this AM, recommended to leave liseth in until pt follows up with Dr. King in one week. Home health notified.
[2018-11-26] MEDS ORDERED: SULF-198 PO (14:52)
== END 2018-11-25 11:35 | disposition home health service (06) | DRG 395 ==
LOC: ECF 10:35
PROVIDERS: ADMIT Surgery; ATTEND Surgery
DX: Z43.3 Encounter for attention to colostomy (principal); R53.1 Weakness; E78.5 Hyperlipidemia, unspecified; I10 Essential (primary) hypertension; K59.03 Drug induced constipation; T40.2X5A Adverse effect of other opioids, initial encounter; Z90.710 Acquired absence of both cervix and uterus; Z90.49 Acquired absence of other specified parts of digestive tract
CPT/HCPCS: 97162; 97165; J1650

== ENCOUNTER → 2018-12-10 | Outpatient (REF) | payer OTHER, MEDICARE ==
[~2018-12-10] MED LIST changes: +FLUC200T56 PO; +SULF-198 PO
[2018-12-10 15:24] LABS: PLATELET COUNT, AUTOMATED 196 K/uL (150-450)
== END ==
PROVIDERS: ATTEND Surgery
DX: E78.5 Hyperlipidemia, unspecified (principal); I10 Essential (primary) hypertension
CPT/HCPCS: 36415; 82310; 82374; 82435; 82565; 82947; 84132; 84295; 84520; 85025